=== PATIENT | female | born 1930 | race Caucasian/White ===

== ENCOUNTER 2016-10-06 20:51 | Inpatient (IN) | payer MEDICARE, OTHER ==
--- NOTE | ~2016-10-06 | CR72 ---
[facility] A Service of [facility] RADIOLOGY TEXT RESULTS PATIENT: VIRGINIA SHARPE LOCATION: [facility] 307- : 29 UNIT #: [id number] AGE: [address]: Cathy Pelaez MD SEX: F ORDER DR: [id number] [facility] [address] [place], [place] [address] [id number] I MR#: [id number] Acc #: [id number] NAME: VIRGINIA SHARPE. : 1930 SEX: F STUDY DATE/TIME: 10/07/2016 3:11 UNIT: [address] ROOM: [facility] STUDY DESCRIPTION: CR Chest Single View Portable Attending Physician: Darius Haskins M.D. Ordering Physician: Darius Haskins M.D. Primary Care Physician: Minerva Moore M.D. MEDICAL IMAGING REPORT This report is preliminary unless electronic signature is present EXAM Portable AP view of the chest COMPARISON October 06, 2016 and August 01, 2016. INDICATION 86-year-old female with dyspnea and cough for 2 days. FINDINGS Dual lead left chest pacemaker device/defibrillator is again noted and grossly stable. There is persistent cardiomegaly. There is also persistent mediastinal widening likely reflecting vascular congestion. There are stable interstitial opacities throughout the lungs, favoring interstitial edema over pneumonia. There may be trace right pleural effusion versus atelectasis. Ingested contrast is seen within bowel in the left upper quadrant of the abdomen. IMPRESSION As compared to earlier today, there are grossly stable interstitial opacities throughout the lungs in the setting of cardiomegaly, likely reflecting mild interstitial edema. Questionable trace right pleural effusion, unchanged from earlier today. Dictated by... Umer Maloney M.D. THIS IS AN ELECTRONICALLY VERIFIED REPORT Umer Maloney M.D. at 10/09/2016 9:37 PM ARI/dayana TD: 10/07/2016 08:32 [facility] A Service of [facility] RADIOLOGY TEXT RESULTS PATIENT: VIRGINIA SHARPE LOCATION: [facility] 307-01 : 29 UNIT #: [id number] AGE: [address]: Cathy Pelaez MD SEX: F ORDER DR: JOB #: [id number] MEDICAL IMAGING REPORT COPY
--- NOTE | ~2016-10-06 | CR63 ---
[facility] A Service of [facility] RADIOLOGY TEXT RESULTS PATIENT: VIRGINIA SHARPE LOCATION: [facility] 307- : 29 UNIT #: [id number] AGE: [address]: Cathy Pelaez MD SEX: F ORDER DR: [id number] [facility] [address] [place], [place] [address] [id number] I MR#: [id number] Acc #: [id number] NAME: VIRGINIA SHARPE. : 1930 SEX: F STUDY DATE/TIME: 10/09/2016 12:09 UNIT: [address] ROOM: [facility] STUDY DESCRIPTION: CR Chest 2 View Attending Physician: Cathy Pelaez M.D. Ordering Physician: Hoang Ray M.D. Primary Care Physician: Minerva Moore M.D. MEDICAL IMAGING REPORT This report is preliminary unless electronic signature is present EXAM Chest x-ray, 10/09. INDICATION Shortness of air for 3 days with a history of hypertension. FINDINGS 2 views of the chest compared with 10/07/2016. Cardiomegaly and mediastinal widening are stable. There is continued elevation of the right hemidiaphragm. Detail in the left base is obscured by the pacer power pack. There may be a trace amount of pleural fluid on both sides of the chest. There is some atelectasis or scarring at the right base which is unchanged. There is improved aeration of the right upper lobe. No pneumothorax. IMPRESSION Slight improvement in aeration of the right upper lobe. The exam is otherwise stable from prior. No pneumothorax is seen. Dictated by... Danie Andino Jr., M.D. THIS IS AN ELECTRONICALLY VERIFIED REPORT Danie Andino Jr., M.D. at 10/09/2016 4:52 PM PINA/donta TD: 10/09/2016 16:04 JOB #: [id number] MEDICAL IMAGING REPORT COPY
--- NOTE | ~2016-10-06 | EKG ---
PATIENT: VIRGINIA SHARPE UNIT #: [id number] Ventricular Rate: 75 BPM Atrial Rate: 75 BPM P-R Interval: 222 ms QRS Duration: 172 ms Q-T Interval: 482 ms QTC Calculation(Bezet): 538 ms P [place]: 93 degrees Calculated R [place]: -57 degrees Calculated T [place]: 107 degrees Diagnosis Line: Atrial-sensed ventricular-paced rhythm with Diagnosis Line: prolonged AV conduction Diagnosis Line: Abnormal ECG Diagnosis Line: When compared with ECG of 23-JUL-2015 09:10, Diagnosis Line: Premature ventricular complexes are no longer Diagnosis Line: Present Diagnosis Line: Vent. rate has decreased BY 11 BPM Diagnosis Line: Confirmed by MEMO BETHEA MD ([id number]) on Diagnosis Line: 10/07/2016 11:54:17 AM INTERPRETING : GUEVARA
--- NOTE | ~2016-10-06 | EKG ---
PATIENT: VIRGINIA SHARPE UNIT #: [id number] Ventricular Rate: 75 BPM Atrial Rate: 75 BPM P-R Interval: 222 ms QRS Duration: 172 ms Q-T Interval: 482 ms QTC Calculation(Bezet): 538 ms P [place]: 93 degrees Calculated R [place]: -57 degrees Calculated T [place]: 107 degrees Diagnosis Line: Atrial-sensed ventricular-paced rhythm with Diagnosis Line: prolonged AV conduction with PVC's Diagnosis Line: Abnormal ECG Diagnosis Line: When compared with ECG of 23-JUL-2015 09:10, Diagnosis Line: Vent. rate has decreased BY 11 BPM Diagnosis Line: Reconfirmed by MEMO BETHEA MD ([id number]) on Diagnosis Line: 10/07/2016 11:54:53 AM INTERPRETING : GUEVARA
--- NOTE | ~2016-10-06 | HP ---
Unit #: [id number] #: [id number] Patient: VIRGINIA SHARPE [id number] [address] [place], [place] [address] [id number] I MR#: [id number] NAME: VIRGINIA SHARPE ROOM: 76115 Age: 86 Sex: F Admission Date: 10/07/2016 : 1930 Attending Physician: Darius Haskins M.D. Primary Care Physician: Minerva Moore M.D. HISTORY AND PHYSICAL CHIEF COMPLAINT Back pain. HISTORY OF PRESENT ILLNESS The patient is an 86-year-old female who presents to [facility] with complaint of back pain. She states that it started a couple of days ago. It is her right upper back associated with vomiting, chills, productive cough. No alleviating factors. 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 SOCIAL HISTORY No tobacco since 2008. There is no alcohol or illicit drug use. The patient lives with her son. HOME MEDICATIONS 1. Albuterol nebulizer as needed. 2. Advair 250/50 mcg one puff b.i.d. 3. Lasix 20 mg b.i.d. 4. Coreg 6.25 mg p.o. b.i.d. 5. Nexium 40 mg p.o. b.i.d. 6. Multivitamin daily. 7. Vitamin D 2,000 units daily. 8. Flunisolide nasal two puffs daily. 9. Neurontin 100 mg p.o. q.h.s. REVIEW OF SYSTEMS A 10-point review of systems was obtained, negative except as per HPI. PHYSICAL EXAMINATION GENERAL APPEARANCE: An 86-year-old female in no acute distress, appears stated age. VITAL SIGNS: Temperature 97.9. Pulse 89. Blood pressure 130/95. HEENT: Pupils equally round. Extraocular movements intact. Mucous membranes dry. NECK: Supple. No JVD. No lymphadenopathy. CARDIAC: Regular rate and rhythm. No murmurs, gallops or rubs. LUNGS: Clear to auscultation bilaterally. ABDOMEN: Nontender, nondistended. Positive bowel sounds. Unit #: [id number] #: [id number] Patient: VIRGINIA SHARPE EXTREMITIES: No clubbing, cyanosis or edema. They are warm and dry. PSYCHIATRIC: Alert and oriented x3. Affect is appropriate. NEUROLOGIC: Cranial nerves II-XII intact grossly. The patient moves all extremities equally and with purpose. SKIN: No rash, bruise or ulcers. MUSCULOSKELETAL: No muscle or joint pain. No muscle or joint swelling. DIAGNOSTIC STUDIES LABORATORY: Creatinine 3.8, potassium 3.1, bilirubin 4.6, AST 183, ALT 215. BNP 277. White count 22.7. UA shows 3+ leukocyte esterase, nitrite positive with 10 to 25 red cells, innumerable WBCs, 2+ bacteria but moderate squamous cells. Lactic normal at 1.4. IMAGING: Chest x-ray shows right upper lobe pneumonia. ASSESSMENT AND PLAN 1. Severe sepsis. The patient has been started on IV antibiotics. Initial lactic acid is negative (1) the need for sepsis protocol. 2. Pneumonia. The patient has been started on Rocephin and Zithromax for community-acquired pneumonia. 3. Urinary tract infection. Coverage with Rocephin. The patient does show moderate squamous cell so it is unclear if this contaminated sample or not. Follow cultures. 4. Chronic respiratory failure. I have continued the patient's oxygen. 5. Prophylaxis. The patient will be started on Lovenox 30 mg subcu daily and SCDs. 6. Acute kidney on chronic kidney disease stage 3. The patient has received a liter bolus in the emergency department. I have given another 500 mL bolus and then started this patient on 75 mL normal saline an hour. The patient does have an ejection fraction of 25%. I am avoiding aggressive hydration secondary to this. Dictated by Myrna Fischer/jorge TD: 10/07/2016 05:58 JOB #: [id number] HISTORY AND PHYSICAL X Darius Haskins MD X HISTORY AND PHYSICAL
--- NOTE | ~2016-10-06 | CO ---
Unit #: [id number] #: [id number] Patient: VIRGINIA GUTIERREZ [id number] [address] [place], [place] [address] [id number] I MR#: [id number] NAME: VIRGINIA GUTIERREZ ROOM: 307 Age: 86 Sex: F Admission Date: 10/07/2016 : 1930 Attending Physician: Cathy Pelaez M.D. Primary Care Physician: Minerva Moore M.D. CONSULTATION REPORT REASON FOR CONSULTATION COPD, cough, increased shortness of breath. HISTORY OF PRESENT ILLNESS Ms. Gutierrez is an 86-year-old female, who is a very poor historian. Much of the history was gathered from the chart in addition to her history. She apparently had nausea, vomiting and diarrhea for several days and presented to the hospital. There was question of pneumonia and she was placed on antibiotics for pneumonia. There was evidence of urinary tract infection as well. Her nausea, vomiting, and diarrhea have improved, but she had increased cough and wheezing and we were asked to evaluate the patient. She denies much in the way of sputum production, but she does have cough and wheezing. No chest pain, hemoptysis, or fever. PAST MEDICAL HISTORY She is a very poor historian after lengthy interview. She does have COPD and is followed by Dr. Crow in our office. She has chronic respiratory failure with oxygen at night, left ventricular dysfunction with an EF of 25%, history of hypertension, gastroesophageal reflux and apparent right lower lobectomy for a benign tumor, details unclear. MEDICATIONS At home, she states she is on Advair 1 puff b.i.d., she has a nebulizer which she takes b.i.d. She is on oxygen at night only. Other medications according to her med rec sheet include Nexium, multivitamin, vitamin D, Neurontin, Lasix and Coreg. ALLERGIES Ampicillin, tetracycline, and penicillin, which apparently causes itching. SOCIAL HISTORY Quit smoking in 2008. She lives with her son at home. She does not drink. FAMILY HISTORY No definite familial lung disease. REVIEW OF SYSTEMS Very vague and quite frankly, hard to keep her on point. Her nausea, vomiting, diarrhea are better, but she is a little bit nauseated today after eating sausage this morning. She states she is eating and drinking without difficulty. No abdominal pain, hematuria, dysuria, focal weakness, paresthesias, leg pain, swelling, fever, chills, weight loss. It is unclear if she snores. When I asked her if she has been investigated for sleep apnea, she says "Oh, I don't need that." Unit #: [id number] #: [id number] Patient: VIRGINIA GUTIERREZ, her son is on CPAP. PHYSICAL EXAMINATION GENERAL: Reveals a patient, who actually looks younger than her chronological age. VITAL SIGNS: She is afebrile, pulse 61, respiratory rate is 22, blood pressure is 125/54. She is 5 feet 6 inches, 214 pounds, BMI is 34. HEENT: Pupils are equal, round, and reactive to light. Sclerae anicteric. Head atraumatic. NECK: Supple. Mucous membranes are moist. She has a Mallampati class IV oropharynx. She has dentures in place. CHEST: Expiratory wheeze. No crackles. No stridor. No consolidation. CARDIAC: Distant heart tones. Regular rate and rhythm. No definite pathologic murmur, rub, or gallop. ABDOMEN: Obese, soft, and nontender. No hepatomegaly noted. No rebound. EXTREMITIES: Reveal no clubbing or cyanosis. No significant edema. Calves are nontender. SKIN: Warm and dry without rash or diaphoresis. NEUROLOGIC: Grossly intact. No focal, motor or sensory deficits. DIAGNOSTIC STUDIES IMAGING STUDIES: Chest x-ray, portable film, mildly increased interstitial markings. I do not see any definite focal infiltrates. LABORATORY RESULTS: Creatinine is now 1.2, was 3.8 on admission. BNP 277 on admission. Lactic acid 1.4 on admission. Cardiac enzymes negative on admission. White blood cell count was 22.7, now 6.7, hemoglobin 10.6, platelet count normal. Urinalysis markedly abnormal with hematuria and pyuria. Blood cultures, no growth so far. Urine culture contaminated. Sputum culture 2 years ago, normal audi. CT scan of the abdomen, lung cuts were reviewed, shows no pneumonia. Per report, she has infrarenal abdominal aneurysm, 4.2 x 3.6, that is stable, cholelithiasis, diverticulosis. No definite acute changes. Rhythm strips are paced. IMPRESSION 1. Chronic obstructive pulmonary disease with bronchospasm. 2. Chronic respiratory failure with nocturnal use, suspect some acute component as she is on oxygen now. 3. Left ventricular dysfunction. 4. Acute kidney injury, now better. Suspect prerenal secondary to the nausea, vomiting, diarrhea. 5. Nausea vomiting, diarrhea, suspect viral gastroenteritis. 6. Obesity, consider obstructive sleep apnea. 7. Abnormal urinalysis, consistent with urinary tract infection. Labs appear better, not convinced that she has pneumonia. 8. Per EHR, status post right lower lobectomy for benign disease. PLAN Continue current antibiotics. We will check good PA and lateral chest x-ray and recheck urine. Start IV steroids, nebulized bronchodilators. Tomorrow, we will check O2 requirements as she may need oxygen 24 hours a day. Given her multiple problems including left ventricular dysfunction, consider outpatient nocturnal polysomnography. I will leave this decision to Dr. Crow as he knows the patient very well. He will see her tomorrow. Thank you very much for allowing me to participate in the care of Ms. Unit #: [id number] #: [id number] Patient: VIRGINIA GUTIERREZ. Dictated by... Mryna Butts/keyana TD: 10/09/2016 23:47 JOB #: [id number] CC: Dillan Salinas M.D. CONSULTATION REPORT X Hoang Ray MD CONSULTATION REPORT
--- NOTE | ~2016-10-06 | CT4 ---
[facility] A Service of [facility] RADIOLOGY TEXT RESULTS PATIENT: VIRGINIA SHARPE LOCATION: [facility] 307-01 : 29 UNIT #: [id number] AGE: [address]: Cathy Pelaez MD SEX: F ORDER DR: [id number] [facility] [address] [place], [place] [address] [id number] I MR#: [id number] #: [id number] NAME: VIRGINIA SHARPE : 1930 SEX: F STUDY DATE/TIME: 10/06/2016 21:19 UNIT: CEDOF ROOM: 37516 STUDY DESCRIPTION: CT Abd and Pelv Wo Cont Attending Physician: Darius Haskins M.D. Ordering Physician: Ed Charbel Thrasher M.D. Primary Care Physician: Minerva Moore M.D. MEDICAL IMAGING REPORT This report is preliminary unless electronic signature is present EXAM Abdomen and pelvis CT no contrast, 10/06/2016 INDICATION 86-year-old female with nausea, vomiting, diarrhea, and shortness of air for 2 days. Hypertension, congestive heart failure. TECHNIQUE Noncontrast abdomen and pelvis CT was performed and compared with 07/14/2016. This CT exam was performed with one or more of the following radiation dose reduction techniques: automatic exposure control, adjustment of mA and/or kV according to patient size, and iterative reconstruction. FINDINGS CT ABDOMEN: Exam markedly degraded by noncontrast technique. There is also motion degradation. Included lung bases demonstrate emphysema and basilar fibrosis/scarring. No effusion or dense pneumonia. The heart is enlarged. No pericardial effusion. There is a small to moderate-sized hiatal hernia. The aorta demonstrates advanced atherosclerotic change. There is advanced scoliosis of the thoracolumbar spine convexed to the right and associated tortuosity of the aorta. The infrarenal abdominal aorta is aneurysmal measuring 4.2 cm x 3.6 cm. This is essentially unchanged from the prior study. There is ectasia of the common iliac arteries bilaterally. There is ectasia of the descending thoracic aorta. Spleen, adrenal glands, and pancreas unremarkable. There is fatty infiltration of the pancreas. The gallbladder is distended and there are multiple gallstones. There is also choledocholithiasis with at least 2 stones in the distal common bile duct. One measures 9 mm and a second measures 8 mm. There is no upstream intrahepatic biliary ductal STS. [facility] A Service of [facility] RADIOLOGY TEXT RESULTS PATIENT: VIRGINIA SHARPE LOCATION: [facility] 307- : 29 UNIT #: [id number] AGE: [address]: Cathy Pelaez MD SEX: F ORDER DR: anthony. In retrospect, choledocholithiasis was also present on the prior study as well. There is probable fatty infiltration of the liver. No hydronephrosis of either kidney. Benign appearing cyst in the mid pole right kidney and a tiny cyst arising from the lower pole left kidney are unchanged. Visualized ureters unremarkable. CT PELVIS: Bladder unremarkable. There is no adnexal mass. Probably benign postmenopausal cyst in the left ovary measures 3.2 cm. This is essentially unchanged. It could be further evaluated with nonemergent pelvic ultrasound if clinically desired or warranted. There is diverticulosis of the colon. There is no bowel obstruction. Appendix not clearly identified but no secondary sign of inflammatory change or appendicitis in the right lower quadrant. Inguinal canals is unremarkable. Osseous structures demonstrate spinal degenerative changes related to the scoliosis. IMPRESSION 1. Exam degraded by noncontrast technique. 2. No primary or secondary sign of obstructing stone in either kidney. 3. Infrarenal abdominal aortic aneurysm measures 4.2 cm x 3.6 cm, not significantly changed. 4. Fatty infiltration of the liver. 5. Cholelithiasis and choledocholithiasis without distinct CT evidence of complicating feature at this time. Findings are actually similar to the prior CT. 6. Diverticulosis. 7. Left adnexal cyst likely an ovarian cyst, unchanged from the prior study. This could be further evaluated with nonemergent pelvic ultrasound given the patient's postmenopausal status but is likely to be benign. 8. Dextroscoliosis with associated secondary degenerative change. Dictated by... Bryan Parisi M.D. THIS IS AN ELECTRONICALLY VERIFIED REPORT Bryan Parisi M.D. at 10/07/2016 10:23 AM NOUR/lavinia TD: 10/07/2016 03:57 JOB #: [id number] MEDICAL IMAGING REPORT COPY
--- NOTE | ~2016-10-06 | DS ---
Unit #: [id number] #: [id number] Patient: VIRGINIA SHARPE [id number] [address] [place], [place] [address] [id number] I MR#: [id number] NAME: VIRGINIA SHARPE. ROOM: 307 Age: 86 Sex: F Admission Date: 10/07/2016 : 1930 Discharge Date: 10/12/2016 Attending Physician: Cathy Pelaez M.D. Primary Care Physician: Minerva Moore M.D. DISCHARGE SUMMARY ADDENDUM The patient's discharge was held by pulmonology. They ordered a CT scan of the chest, which revealed a stable 2.8 cm lesion with a sebaceous cyst in upper back. There were no infiltrates or masses seen. The patient is feeling much better and wants to go home. Transfer, she will be discharged today. MEDICATIONS 1. Medications are as per previous discharge summary. 2. Prednisone 10 mg 4 tablets p.o. daily for 3 days, then 3 tablets p.o. daily for 3 days, then 2 tablets p.o. daily for 3 days, then 1 tablet p.o. daily for 3 days. 3. Omnicef 300 mg p.o. b.i.d. for 3 days. 4. Patient was also advised to use albuterol MDI 2 puffs q.4 hours p.r.n. FOLLOW-UP 1. The patient is advised to follow up with primary care physician in 1 week. 2. Follow up with Dr. Crow in 2-3 weeks. 3. We will arrange home health regarding home safety assessment. 4. She was advised to call primary care physician or go to ER if her condition changes. NOTE: The plan was discussed in detail with the patient who showed complete understanding. Dictated by... Myrna Hughes TD: 10/12/2016 14:01 JOB #: [id number] Unit #: [id number] #: [id number] Patient: VIRGINIA SHARPE DISCHARGE SUMMARY X Cathy Pelaez MD DISCHARGE SUMMARY
--- NOTE | ~2016-10-06 | CR72 ---
[facility] A Service of [facility] RADIOLOGY TEXT RESULTS PATIENT: VIRGINIA SHARPE LOCATION: [facility] 307-01 : 29 UNIT #: [id number] AGE: [address]: Cathy Pelaez MD SEX: F ORDER DR: [id number] [facility] [address] [place], [place] [address] [id number] MR#: [id number] Acc #: [id number] NAME: VIRGINIA SHARPE. : 1930 SEX: F STUDY DATE/TIME: 10/06/2016 20:18 UNIT: [facility] ROOM: 00859 STUDY DESCRIPTION: CR Chest Single View Portable Attending Physician: Darius Haskins M.D. Ordering Physician: Ed Charbel Thrasher M.D. Primary Care Physician: Minerva Moore M.D. MEDICAL IMAGING REPORT This report is preliminary unless electronic signature is present EXAM Portable chest, 10/06/2016 HISTORY Shortness of breath, chills and nausea for 2 days. Benign essential hypertension. FINDINGS The heart is enlarged but stable compared with 08/01/2016. Cardiac pacemaker is unchanged. There are diffuse interstitial infiltrates bilaterally with ill-defined airspace consolidation in the right upper lobe characteristic of bilateral pneumonia. Elevation of the right hemidiaphragm with atelectasis at the right base. There are no pleural effusions. No pneumothorax. IMPRESSION 1. Stable cardiomegaly compared with 08/01/2016. Cardiac pacemaker is unchanged. No pneumothorax. 2. Diffuse interstitial infiltrates bilaterally and ill-defined airspace consolidation right upper lobe characteristic of pneumonia. Dictated by... Leo Toro M.D. THIS IS AN ELECTRONICALLY VERIFIED REPORT Leo Toro M.D. at 10/07/2016 4:20 PM QUIN/lavinia TD: 10/07/2016 02:48 JOB #: [id number] [facility] A Service of [facility] RADIOLOGY TEXT RESULTS PATIENT: VIRGINIA SHARPE LOCATION: [facility] 307-01 : 29 UNIT #: [id number] AGE: [address]: Cathy Pelaez MD SEX: F ORDER DR: MEDICAL IMAGING REPORT COPY
--- NOTE | ~2016-10-06 | CT57 ---
[facility] A Service of [facility] RADIOLOGY TEXT RESULTS PATIENT: VIRGINIA SHARPE LOCATION: [facility] 307- : 29 UNIT #: [id number] AGE: [address]: Cathy Pelaez MD SEX: F ORDER DR: [id number] [facility] [address] [place], [place] [address] [id number] I MR#: [id number] Acc #: [id number] NAME: VIRGINIA SHARPE. : 1930 SEX: F STUDY DATE/TIME: 10/10/2016 19:24 UNIT: [address] ROOM: [facility] STUDY DESCRIPTION: CT Chest Wo Cont Attending Physician: Cathy Pelaez M.D. Ordering Physician: Joni Thrasher M.D. Primary Care Physician: Minerva Moore M.D. MEDICAL IMAGING REPORT This report is preliminary unless electronic signature is present EXAM CT scan of the chest without contrast HISTORY Chest pain in the chest for a few days with cough. COMPARISON 05/01/2016. TECHNIQUE Axial 5 mm images were obtained through the chest without IV contrast. This CT exam was performed with one or more of the following radiation dose reduction techniques: automatic exposure control, adjustment of mA and/or kV according to patient size, and iterative reconstruction. FINDINGS There is a well-circumscribed subcutaneous lesion in the upper back in the midline which is consistent with a spacious cyst. It is unchanged from 04/29/2016 and measures 2.8 cm in diameter. The thyroid gland is small or absent with a calcified nodule in the thyroid bed measuring 1.8 cm in diameter. That is on the left side. The study is degraded by streak artifact from the pacemaker. The aorta appears normal in size. There is no adenopathy. The visualized portions of the upper abdomen are unremarkable except for gallstones with 2 1 cm stones seen. The lungs are clear. IMPRESSION 1. The study is limited by the patient's size and it is very grainy. There are no infiltrates or masses visible in the lungs. A pacemaker is present. 2. There is a stable 2.8 cm lesion consistent with a sebaceous cyst in the upper posterior back in the midline. STS. [facility] A Service of [facility] RADIOLOGY TEXT RESULTS PATIENT: VIRGINIA SHARPE LOCATION: [facility] 307-01 : 29 UNIT #: [id number] AGE: [address]: Cathy Pelaez MD SEX: F ORDER DR: Dictated by... Barney Wild M.D. THIS IS AN ELECTRONICALLY VERIFIED REPORT Barney Wild M.D. at 10/11/2016 4:32 PM SHEKHAR/bobby TD: 10/11/2016 13:18 JOB #: [id number] MEDICAL IMAGING REPORT COPY
--- NOTE | ~2016-10-06 | DS ---
Unit #: [id number] #: [id number] Patient: VIGRINIA SHARPE [id number] [address] [address] [id number] I MR#: [id number] NAME: VIRGINIA SHARPE. ROOM: 307 Age: 86 Sex: F Admission Date: 10/07/2016 : 1930 Discharge Date: 10/10/2016 Attending Physician: Cathy Pelaez M.D. Primary Care Physician: Minerva Moore M.D. DISCHARGE SUMMARY ADMISSION DIAGNOSES 1. Shortness of air. 2. Pneumonia. 3. Acute kidney injury. 4. Acute urinary tract infection. DISCHARGE DIAGNOSES 1. Chronic obstructive pulmonary disease exacerbation, improved. 2. Probable pneumonia. 3. Acute kidney injury, resolved. 4. Chronic congestive heart failure with ejection fraction of 25%-30%. 5. Acute urinary tract infection. 6. Chronic respiratory failure on oxygen 2 liters nasal cannula at home. 7. Hypertension. 8. Gastroesophageal reflux disease. 9. Infrarenal abdominal aortic aneurysm 4.[address] Ray in pulmonary consultation. DIAGNOSTIC DATA LABORATORY: The patient's creatinine is 1.2, sodium 143, potassium 3.7. White blood cell count 6.7, hemoglobin 10.6, platelets 147. Blood culture did not reveal any growth so far. Urine culture revealed mixed growth of 80%. IMAGING: Chest x-ray reveals slight improvement in aeration of right upper lobe. CT scan abdomen and pelvis revealed abdominal aortic aneurysm measuring 4.2 cm. There is no primary or secondary sign of obstructive stone. The patient has cholelithiasis and diverticulosis present. There is a left ovarian cyst likely. HOSPITAL COURSE The patient is an 86-year-old female who presented to [facility] with shortness of air. Details are as per admission history and physical. The patient was treated with antibiotics and is afebrile. Pneumonia and acute urinary tract infection are better. Acute kidney injury: The patient was treated with IV fluids. Her creatinine is normal. Acute chronic obstructive pulmonary disease exacerbation: The patient was Unit #: [id number] #: [id number] Patient: VIRGINIA SHARPE given steroids and was seen by Dr. Ray in consultation. Infrarenal abdominal aortic aneurysm: The patient is advised to follow up with Dr. Raman and group on an outpatient basis. Today the patient is comfortable. She is not in acute distress. DISCHARGE CONDITION Stable. ACTIVITY As tolerated. DISCHARGE MEDICATIONS 1. Albuterol MDI 2 puffs q.2 h. p.r.n. 2. Advair Diskus 250/50 one inhalation b.i.d. 3. Tylenol 650 mg p.o. q.6 h. p.r.n. 4. Neurontin 100 mg p.o. at nighttime. 5. Coreg 6.25 mg p.o. b.i.d. 6. Lasix 20 mg p.o. b.i.d. 7. Multivitamin 1 tablet p.o. daily. 8. Nexium 40 mg p.o. daily. 9. Vitamin D 2000 units subcutaneous daily. The patient's antibiotic, inhalers and prednisone as per Dr. Ray. I tried to call the patient's son, Riki, but was unable to get hold of him. FOLLOWUP 1. The patient is advised to call primary care physician or go to the emergency room if her condition changes. 2. Will arrange home health regarding home safety assessment and nursing. 3. The patient is advised to follow up with primary care physician in one week and have a CBC and BMP done. 4. Follow up with Dr. Ray as recommended. 5. Follow up with Dr. Raman for infrarenal abdominal aortic aneurysm. Dictated by... Myrna Hughes/man TD: 10/10/2016 13:32 JOB #: [id number] CC: Myrna Ortiz M.D. Unit #: [id number] #: [id number] Patient: VIRGINIA SHARPE DISCHARGE SUMMARY X Cathy Pelaez MD DISCHARGE SUMMARY
[2016-10-06 18:04] LABS: BASOPHIL# 0.1 X10e3 (0-0.3); BASOPHIL% 0.3 % (0-2.5); EOSINOPHIL# 0.1 X10e3 (0-0.7); EOSINOPHIL% 0.6 % (0.0-7.0); HEMATOCRIT 37.8 % (35.0-45.0); HEMOGLOBIN 11.8 gm/dL (12.0-16.0); LYMPHOCYTE# 1.4 X10e3 (1.0-3.5); LYMPHOCYTE% 6.1 % (17.0-45.0); MEAN CELL VOLUME 85.8 FL (83-96); MEAN CORPUSCULAR HEMOGLOBIN 26.8 PG (28-34); MEAN CORPUSCULAR HGB CONC 31.3 g/dL (30-36); MEAN PLATELET VOLUME 9.1 FL (6.5-11.5); MONOCYTE% 4.6 % (3.0-12.0); NEUTROPHIL# 20.1 X10e3 (1.5-7.1); NEUTROPHIL% 88.4 % (40-75); PLATELET COUNT 159 X10e3 (140-420); RED BLOOD COUNT 4.41 X10e (3.90-5.30); RED CELL DISTRIBUTION WIDTH 15.3 % (11.0-15.5); WHITE BLOOD COUNT 22.7 X10e3 (4.0-10.5)
[2016-10-06 18:06] LABS: DIFF IND YES
[2016-10-06 18:16] LABS: ALBUMIN SERUM 3.2 g/dL (3.5-5.0); BILIRUBIN,INDIRECT 1.6 mg/dL (0.0-0.9); BILIRUBIN,TOTAL 4.6 mg/dL (0.2-2.0); BUN/CREATININE RATIO 12.36; CALCIUM SERUM 8.1 mg/dL (8.4-10.2); CREATININE SERUM 3.8 mg/dL (0.6-1.4); GLOM FILT RATE Estimated 11.9 mL/min (>60); POTASSIUM 3.1 mmol/L (3.5-5.1); PROTEIN TOTAL SERUM 6.5 g/dL (6.0-8.3)
[2016-10-06 19:23] LABS: ANISOCYTOSIS SL; PLATELET ESTIMATE NORMAL (NORMAL)
[2016-10-06 19:47] LABS: POC - CKMB 1.9 ng/mL (0.0-7.9); POC - TROPONIN <0.05 ng/mL (<=0.05)
[2016-10-06 20:38] LABS: URINE SOURCE CLEAN CATCH
[2016-10-06 20:46] LABS: URINE APPEARANCE TURBID; URINE BLOOD 1+ (NEG); URINE COLOR DK YELLOW; URINE GLUCOSE NEG (NEG); URINE KETONE NEG (NEG); URINE LEUKOCYTE ESTERASE 3+ (NEG); URINE NITRATE POS (NEG); URINE PH 5.5 (5-8); URINE PROTEIN 1+ (NEG); URINE SPECIFIC GRAVITY 1.015 (1.003-1.035)
[2016-10-06 20:48] LABS: CULTURE INDICATED? YES; URINE BACTERIA AUWI 2+ (NEGATIVE); URINE SQUAMOUS EPITHELIAL CELL MOD /[HPF]; UWBCS1 AUWI INNUM (0-5)
[2016-10-06 20:49] LABS: URINE BILIRUBIN NEG (NEG)
[~2016-10-06 20:51] MED LIST: ACETAMINOPHEN PO; ADVAIR 250-501 EAC1 INH; ADVAIR 250-501 EACH INH; ADVAIR 2501 DISK W/D PO; ALBUTEROL 0.5ML INH; ALBUTEROL 0.5ML NEB; ALBUTEROL MININEB NEB; ALBUTEROL2.5 MG/0.5 INH; ALDACTONE PO; ALLEGRA PO; ALLERGY MED PO; ALLERGY25 M1 PO; BACTRIM DS TABL1 TAB PO; CERTAGEN PO; COLACE PO; COREG PO; COREG6.25 MG PO; FLUNISOLIDE25 ML; HYDRALAZINE HCL25 MG PO; IBUPROFEN PO; KLOR-CON PO; LASIX PO; LASIX20 MG PO; LEVAQUIN PO; LISINOPRIL PO; MULTI VITAMIN1 EACH PO; MULTIVITAMIN1 UDCAP PO; NASAL SPRAY30 M3; NASONEX17 GM; NEURONTIN100 MG PO; NEXIUM PO; NEXIUM20 MG PO; NITROFURANTOIN100 M3 PO; OXYGEN INH; PAIN RELIEF500 M1 PO; PATIENT'S PHARMACY; PHYSICIAN; PREDNISONE PO; ROBITUSSIN PO; ROBITUSSIN-DM120 ML PO; SINGULAIR PO; TRAMADOL HCL50 M2 PO; VICKS PO; VITAL-D RX TABL1 TAB PO; VITAMIN D 22000 UNIT PO; VITAMIN D2000 UNIT PO; ZITHROMAX PO
[2016-10-07 07:59] LABS: HEMATOCRIT 35.3 % (35.0-45.0); HEMOGLOBIN 11.3 gm/dL (12.0-16.0); MEAN CELL VOLUME 84.4 FL (83-96); MEAN PLATELET VOLUME 9.3 FL (6.5-11.5); RED BLOOD COUNT 4.18 X10e (3.90-5.30); RED CELL DISTRIBUTION WIDTH 15.3 % (11.0-15.5); WHITE BLOOD COUNT 15.6 X10e3 (4.0-10.5)
[2016-10-07 08:29] LABS: BUN/CREATININE RATIO 14.48; CALCIUM SERUM 7.8 mg/dL (8.4-10.2); CREATININE SERUM 2.9 mg/dL (0.6-1.4); GLOM FILT RATE Estimated 16.3 mL/min (>60); POTASSIUM 3.3 mmol/L (3.5-5.1)
[2016-10-08 06:00] LABS: HEMATOCRIT 33.7 % (35.0-45.0); HEMOGLOBIN 10.8 gm/dL (12.0-16.0); MEAN CELL VOLUME 85.4 FL (83-96); MEAN CORPUSCULAR HEMOGLOBIN 27.3 PG (28-34); MEAN PLATELET VOLUME 9.6 FL (6.5-11.5); RED BLOOD COUNT 3.94 X10e (3.90-5.30); RED CELL DISTRIBUTION WIDTH 15.1 % (11.0-15.5); WHITE BLOOD COUNT 8.3 X10e3 (4.0-10.5)
[2016-10-08 06:56] LABS: BUN/CREATININE RATIO 16.84; CALCIUM SERUM 7.8 mg/dL (8.4-10.2); CREATININE SERUM 1.9 mg/dL (0.6-1.4); GLOM FILT RATE Estimated 26.6 mL/min (>60); POTASSIUM 3.2 mmol/L (3.5-5.1)
[2016-10-09 06:39] LABS: HEMATOCRIT 33.6 % (35.0-45.0); HEMOGLOBIN 10.6 gm/dL (12.0-16.0); MEAN CORPUSCULAR HEMOGLOBIN 27.1 PG (28-34); MEAN CORPUSCULAR HGB CONC 31.5 g/dL (30-36); MEAN PLATELET VOLUME 8.9 FL (6.5-11.5); RED BLOOD COUNT 3.91 X10e (3.90-5.30); WHITE BLOOD COUNT 6.7 X10e3 (4.0-10.5)
[2016-10-09 08:06] LABS: BUN/CREATININE RATIO 17.5; CALCIUM SERUM 8.4 mg/dL (8.4-10.2); CREATININE SERUM 1.2 mg/dL (0.6-1.4); GLOM FILT RATE Estimated 45.2 mL/min (>60); POTASSIUM 3.7 mmol/L (3.5-5.1)
[2016-10-09 23:44] LABS: URINE APPEARANCE CLEAR; URINE BILIRUBIN NEG (NEG); URINE BLOOD NEG (NEG); URINE COLOR YELLOW; URINE GLUCOSE 250 MG/DL (NEG); URINE KETONE NEG (NEG); URINE LEUKOCYTE ESTERASE TRACE (NEG); URINE NITRATE NEG (NEG); URINE PH 5.5 (5-8); URINE PROTEIN NEG (NEG); URINE SPECIFIC GRAVITY 1.014 (1.003-1.035)
[2016-10-09 23:46] LABS: URINE BACTERIA AUWI NEG (NEGATIVE); URINE SQUAMOUS EPITHELIAL CELL NONE SEEN /[HPF]
[2016-10-10 17:09] LABS: ARTERIAL BLD GAS O2 SATURATION 89.4 % (90.0-100.0); ARTERIAL BLOOD GAS CARBOXY HB 0.9 %sat (0.0-9.0); ARTERIAL BLOOD GAS HCO3 30.2 mmol/L; ARTERIAL BLOOD GAS MET HB 0.6 %sat (0.0-2.0); ARTERIAL BLOOD GAS PCO2 48.4 mmHg (35.0-45.0); ARTERIAL BLOOD GAS pH 7.403 (7.350-7.450)
[2016-10-10 17:10] LABS: ARTERIAL BLOOD GAS ALLEN TEST NORMAL; ARTERIAL BLOOD GAS ART SITE RIGHT RADIAL; ARTERIAL BLOOD GAS PO2 57.3 mmHg (80.0-100); ARTERIAL DRAW? YES
[2016-10-11 05:47] LABS: HEMATOCRIT 36.1 % (35.0-45.0); HEMOGLOBIN 11.5 gm/dL (12.0-16.0); MEAN CELL VOLUME 86.3 FL (83-96); MEAN CORPUSCULAR HEMOGLOBIN 27.4 PG (28-34); MEAN CORPUSCULAR HGB CONC 31.8 g/dL (30-36); MEAN PLATELET VOLUME 9.7 FL (6.5-11.5); RED BLOOD COUNT 4.18 X10e (3.90-5.30); RED CELL DISTRIBUTION WIDTH 15.1 % (11.0-15.5)
[2016-10-11 05:55] LABS: WHITE BLOOD COUNT 10.2 X10e3 (4.0-10.5)
[2016-10-11 07:15] LABS: CALCIUM SERUM 8.8 mg/dL (8.4-10.2); GLOM FILT RATE Estimated 55.7 mL/min (>60); POTASSIUM 3.8 mmol/L (3.5-5.1)
[2016-10-12 10:03] LABS: HEMATOCRIT 36.2 % (35.0-45.0); HEMOGLOBIN 11.4 gm/dL (12.0-16.0); MEAN CELL VOLUME 86.7 FL (83-96); MEAN CORPUSCULAR HEMOGLOBIN 27.2 PG (28-34); MEAN CORPUSCULAR HGB CONC 31.4 g/dL (30-36); MEAN PLATELET VOLUME 9.5 FL (6.5-11.5); RED BLOOD COUNT 4.18 X10e (3.90-5.30); RED CELL DISTRIBUTION WIDTH 15.2 % (11.0-15.5); WHITE BLOOD COUNT 12.2 X10e3 (4.0-10.5)
[2016-10-12 10:37] LABS: BLOOD UREA NITROGEN 22 mg/dL (9-23); BUN/CREATININE RATIO 24.44; CALCIUM SERUM 8.1 mg/dL (8.4-10.2); CARBON DIOXIDE 31 mmol/L (22-31); CHLORIDE 102 mmol/L (100-111); CREATININE SERUM 0.9 mg/dL (0.6-1.4); GLOM FILT RATE Estimated ABOVE60 mL/min (>60); GLUCOSE FASTING 267 mg/dL (70-110); POTASSIUM 3.3 mmol/L (3.5-5.1); SODIUM 138 mmol/L (135-145)
[2016-10-12] MEDS ORDERED: PAIN RELIEF325 M1 PO (13:11)
[2016-10-12] MEDS ORDERED: OMNICEF300 M1 PO (13:13)
[2016-10-12] MEDS ORDERED: PREDNISONE10 MG PO (13:13)
== END 2016-10-12 14:46 | disposition home health service (06) | DRG 871 ==
LOC: CED 20:51 → CEDOF 10-07 02:00 → C3A PCU 10-07 06:29
PROVIDERS: Emergency Medicine; Internal Medicine
PROC: B24BYZZ Ultrasonography of Heart with Aorta using Other Contrast (ICD-10-PCS; principal; 2016-10-11)
DX: A41.9 Sepsis, unspecified organism (principal); J18.9 Pneumonia, unspecified organism; J96.21 Acute and chronic respiratory failure with hypoxia; N17.9 Acute kidney failure, unspecified; J84.10 Pulmonary fibrosis, unspecified; I42.9 Cardiomyopathy, unspecified; J44.1 Chronic obstructive pulmonary disease with (acute) exacerbation; I50.22 Chronic systolic (congestive) heart failure; N39.0 Urinary tract infection, site not specified; R65.20 Severe sepsis without septic shock; Z99.81 Dependence on supplemental oxygen; N18.3 Chronic kidney disease, stage 3 (moderate); Z88.0 Allergy status to penicillin; Z87.891 Personal history of nicotine dependence; A08.4 Viral intestinal infection, unspecified; E66.9 Obesity, unspecified; G47.33 Obstructive sleep apnea (adult) (pediatric); L72.3 Sebaceous cyst; I71.4 Abdominal aortic aneurysm, without rupture; Z68.34 Body mass index [BMI] 34.0-34.9, adult
CPT/HCPCS: 36415; 36600; 71010; 71020; 71250; 74176; 80048; 80076; 81003; 82308; 82553; 82803; 83605; 83690; 83880; 84484; 85025; 85027; 87040; 87070; 87077; 87086; 87088; 87186; 87205; 93005; 93306; 94640; 94664; 94760; 97161; 97165; 99285; G8978-GP; G8979-GP; G8980-GP; G8987-GO; G8988-GO; G8989-GO; J0456; J0696; J1650; J2930

== ENCOUNTER → 2016-12-29 | Outpatient (CLI) | payer MEDICARE, OTHER ==
[~2016-12-29] MED LIST changes: +OMNICEF300 M1 PO; +PAIN RELIEF325 M1 PO; +PREDNISONE10 MG PO
--- NOTE | ~2016-12-29 | CT57 ---
[facility] A Service of [facility] RADIOLOGY TEXT RESULTS PATIENT: VIRGINIA SHARPE [facility] : 29 UNIT #: [id number] AGE: [address]: Dorita Bolanos SEX: F ORDER DR: [id number] [facility] [address] [place], [place] [address] [id number] O MR#: [id number] Acc #: [id number] NAME: VIRGINIA SHARPE : 1930 SEX: F STUDY DATE/TIME: 12/29/2016 15:04 UNIT: [facility] ROOM: STUDY DESCRIPTION: CT Chest Wo Cont Attending Physician: Dorita Bolanos A.P.R.N. Referring Physician: Dorita Bolanos A.P.R.N. Ordering Physician: Dorita Bolanos A.P.R.N. Primary Care Physician: Minerva Moore M.D. MEDICAL IMAGING REPORT This report is preliminary unless electronic signature is present EXAM CT of the chest without contrast. This is a high-resolution chest CT protocol. INDICATIONS Patient reports shortness of breath for [address] images were obtained through the thorax per high-resolution technique. Please note patient did not tolerate lying prone. This CT exam was performed with one or more of the following radiation dose reduction techniques: Automatic exposure control, adjustment of mA and/or kV according to patient size, and iterative reconstruction. 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 Distribution and morphology really does not appear significantly changed when compared to the exam from January 2016. No new pulmonary nodules or masses are identified. Thyroid gland is very heterogeneous and includes some dense calcifications within the left lobe. Trachea is within normal limits. There is a small hiatal hernia. Shotty mediastinal lymph nodes are not significantly changed. There is aneurysmal dilatation of the ascending thoracic aorta, which measures up to 4 cm; this is stable when compared to last year's examination. Proximal descending thoracic aorta measures around 3 cm, mid descending thoracic aorta measures about 3.3 cm and distal descending thoracic aorta measures about 3 cm. These measurements are not significantly changed when compared to last year's exam. There are coronary artery calcifications. Left-sided pacemaker is noted. Patient has cholelithiasis. There are some high-density structures, which are certainly in the region of the patient's distal common bile duct, and I think it probably does reflect choledocholithiasis. The common bile duct does measure up to about 1.1 cm. Similar findings have been present [facility] A Service of [facility] RADIOLOGY TEXT RESULTS PATIENT: VIRGINIA SHARPE LOCATION: [facility] : 29 UNIT #: [id number] AGE: [address]: Dorita Bolanos SEX: F ORDER DR: on prior studies. There is tortuosity of the abdominal aorta and visualized portion is aneurysmally dilated, measuring up to 3.1 cm in AP dimensions. Review of bony windows demonstrates some deformity of the right ribs, likely related to prior surgery. No aggressive osseous abnormalities are seen. There is lumbar scoliosis with convexity to the right. IMPRESSION 1. Patient is again noted to have subpleural fibrotic changes; these are stable when compared to the exam from January 2016. No new pulmonary nodules or masses are seen. 2. Aneurysmal dilatation of the thoracic aorta as well as of the abdominal aorta, again probably not significantly changed when compared to last year's study. 3. Patient does have cholelithiasis and I suspect there is also choledocholithiasis. The common bile duct measures up to about 1.1 cm. Correlation with liver function tests is suggested. ERCP or MRCP could be considered for additional evaluation. Dictated by... Caitlyn Alvarado M.D. THIS IS AN ELECTRONICALLY VERIFIED REPORT Caitlyn Alvarado M.D. at 12/31/2016 4:59 PM AFF/psc TD: 12/30/2016 20:03 JOB #: [id number] MEDICAL IMAGING REPORT Page 1 of 1 COPY
== END | disposition home or self-care (01) ==
LOC: CCAT 14:38
DX: J84.10 Pulmonary fibrosis, unspecified (principal); I71.2 Thoracic aortic aneurysm, without rupture
CPT/HCPCS: 71250